=== PATIENT | female | born 1965 | race Two or more races ===

== ENCOUNTER 2017-11-26 13:26 | Outpatient (CLI) | payer OTHER ==
[~2017-11-26 13:26] MED LIST: ASA81 MG; CATAFLAM50 MG; GILTUSS TR TAB1 EACH PO; HYDROCHLOROTH12.5 M1; HYDROCHLOROTH12.5 M1 PO; LOPRESSOR25 MG; LOPRESSOR25 MG PO; PRILOSEC10 M1; PRILOSEC10 M1 PO; PROTONIX40 MG PO; TESSALON PERLE100 MG PO; TRENTAL 400 MG PO; ZITHROMAX500 MG PO
== END 2017-11-26 13:39 | disposition home or self-care (01) ==
LOC: RAD 13:26
DX: I10 Essential (primary) hypertension (principal); E78.2 Mixed hyperlipidemia; R42 Dizziness and giddiness; R73.01 Impaired fasting glucose; M54.5 Low back pain; M54.2 Cervicalgia

== ENCOUNTER → 2017-12-01 07:35 | Outpatient (CLI) | payer OTHER ==
[~2017-12-01 07:35] MED LIST changes: +CYCLOBENZAPRINE10 MG PO
== END | disposition home or self-care (01) ==
LOC: LAB 07:35
DX: I10 Essential (primary) hypertension (principal); E78.2 Mixed hyperlipidemia; R42 Dizziness and giddiness; R73.01 Impaired fasting glucose; M54.5 Low back pain; M54.2 Cervicalgia

== ENCOUNTER 2017-12-19 15:16 | Emergency (ER) | payer OTHER ==
[~2017-12-19] VITALS: Ht 165.1 cm; Wt 88.5 kg
== END 2017-12-19 19:15 | disposition home or self-care (01) ==
LOC: ER 15:16
DX: S00.83XA Contusion of other part of head, initial encounter (principal); S10.83XA Contusion of other specified part of neck, initial encounter; S30.1XXA Contusion of abdominal wall, initial encounter; W08.XXXA Fall from other furniture, initial encounter; Y93.89 Activity, other specified; Y92.098 Other place in other non-institutional residence as the place of occurrence of the external cause; Y99.8 Other external cause status

== ENCOUNTER 2018-06-29 07:38 | Outpatient (CLI) | payer OTHER | END 2018-06-29 07:43 | disposition home or self-care (01) | LOC: RAD 07:38 | DX: M25.551 Pain in right hip (principal) ==

== ENCOUNTER 2018-08-22 14:41 | Outpatient (CLI) | payer OTHER | END 2018-08-22 14:47 | disposition home or self-care (01) | LOC: LAB 14:41 | DX: J11.1 Influenza due to unidentified influenza virus with other respiratory manifestations (principal); J06.9 Acute upper respiratory infection, unspecified ==

== ENCOUNTER 2018-12-11 06:30 | Outpatient (CLI) | payer OTHER | END 2018-12-11 07:07 | disposition home or self-care (01) | LOC: LAB 06:30 | DX: R42 Dizziness and giddiness (principal); E78.49 Other hyperlipidemia; Z00.00 Encounter for general adult medical examination without abnormal findings; I10 Essential (primary) hypertension ==

== ENCOUNTER 2019-01-02 13:12 | Outpatient (CLI) | payer OTHER | END 2019-01-02 13:29 | disposition home or self-care (01) | LOC: MAMO-SONO 13:12 | DX: Z12.31 Encounter for screening mammogram for malignant neoplasm of breast (principal); N60.11 Diffuse cystic mastopathy of right breast ==

== ENCOUNTER → 2019-01-03 | Outpatient (CLI) | payer OTHER | END | disposition home or self-care (01) | LOC: NUCLEAR 13:00 | DX: M81.0 Age-related osteoporosis without current pathological fracture (principal) ==

== ENCOUNTER → 2019-08-07 | Outpatient (CLI) | payer OTHER | END | disposition home or self-care (01) | LOC: RAD 13:26 | DX: M54.5 Low back pain (principal); M25.551 Pain in right hip; M79.642 Pain in left hand; M25.532 Pain in left wrist ==

== ENCOUNTER 2020-01-06 11:38 | Outpatient (CLI) | payer OTHER | END 2020-01-06 11:44 | disposition home or self-care (01) | LOC: RAD 11:38 | PROVIDERS: ATTEND Internal Medicine Cardiovascular Disease | DX: M12.89 Other specific arthropathies, not elsewhere classified, multiple sites (principal); M46.47 Discitis, unspecified, lumbosacral region ==

== ENCOUNTER 2020-01-07 06:10 | Outpatient (CLI) | payer OTHER | END 2020-01-07 06:20 | disposition home or self-care (01) | LOC: LAB 06:10 | PROVIDERS: ATTEND Internal Medicine Cardiovascular Disease | DX: E03.8 Other specified hypothyroidism (principal); I10 Essential (primary) hypertension; E11.9 Type 2 diabetes mellitus without complications; E78.2 Mixed hyperlipidemia; M12.88 Other specific arthropathies, not elsewhere classified, other specified site ==

== ENCOUNTER 2020-01-07 07:11 | Outpatient (CLI) | payer OTHER | END 2020-01-07 07:15 | disposition home or self-care (01) | LOC: MRI 07:11 | PROVIDERS: ATTEND Internal Medicine Cardiovascular Disease | DX: M46.47 Discitis, unspecified, lumbosacral region (principal) | CPT/HCPCS: 72148 ==

== ENCOUNTER 2020-03-01 18:34 | Inpatient (IN) | payer OTHER ==
[~2020-03-01] VITALS: Ht 165.1 cm; Wt 92.3 kg
[~2020-03-01 18:34] MED LIST changes: +HYDROCHLOROTHIA25 MG PO
[2020-03-05] MEDS ORDERED: ACID REDUCER20 M1 PO (14:47)
[2020-03-05] MEDS ORDERED: PEPCID AC20 MG PO (14:47)
== END 2020-03-05 16:49 | disposition home or self-care (01) | DRG 392 ==
LOC: ER 18:34 → SEC-K 03-02 00:56 → SURH 03-02 00:56
PROVIDERS: ADMIT Neurological Surgery; ATTEND Neurological Surgery
PROC: BW40ZZZ Ultrasonography of Abdomen (ICD-10-PCS; 2020-03-02)
PROC: BW21YZZ Computerized Tomography (CT Scan) of Abdomen and Pelvis using Other Contrast (ICD-10-PCS; principal; 2020-03-03)
DX: R10.84 Generalized abdominal pain (principal); R65.10 Systemic inflammatory response syndrome (SIRS) of non-infectious origin without acute organ dysfunction; I10 Essential (primary) hypertension; Z20.828 Contact with and (suspected) exposure to other viral communicable diseases

== ENCOUNTER → 2020-06-24 | Outpatient (CLI) | payer OTHER ==
[~2020-06-24] MED LIST changes: +ACID REDUCER20 M1 PO; +PEPCID AC20 MG PO
== END | disposition home or self-care (01) ==
LOC: PPH VACUNA 14:27
DX: Z23 Encounter for immunization (principal)

== ENCOUNTER 2020-07-14 11:49 | Outpatient (CLI) | payer OTHER | END 2020-07-14 18:00 | disposition home or self-care (01) | LOC: PPH VACUNA 11:49 | DX: Z23 Encounter for immunization (principal) ==

== ENCOUNTER 2020-09-16 06:26 | Outpatient (CLI) | payer OTHER | END 2020-09-16 15:21 | disposition home or self-care (01) | LOC: LAB 06:26 | PROVIDERS: ATTEND Neurological Surgery | DX: M48.062 Spinal stenosis, lumbar region with neurogenic claudication (principal) ==

== ENCOUNTER → 2020-11-16 | Emergency (ER) | payer OTHER ==
[~2020-11-16] VITALS: Ht 165.1 cm; Wt 86.2 kg
[~2020-11-16] MED LIST changes: +BENADRYL25 MG PO; +MEDROL4 MG PO
== END | disposition home or self-care (01) ==
LOC: ER 23:05
DX: T78.3XXA Angioneurotic edema, initial encounter (principal)

== ENCOUNTER 2021-03-15 13:58 | Outpatient (CLI) | payer OTHER | END 2021-03-15 14:00 | disposition home or self-care (01) | LOC: RAD 13:58 | DX: M48.062 Spinal stenosis, lumbar region with neurogenic claudication (principal) ==

== ENCOUNTER 2021-04-11 08:00 | Outpatient (CLI) | payer OTHER | END 2021-04-11 08:30 | disposition home or self-care (01) | LOC: PPH VACUNA 08:00 | PROVIDERS: ATTEND Emergency Medicine Pediatric Emergency Medicine | DX: Z23 Encounter for immunization (principal) ==

== ENCOUNTER 2021-04-21 16:50 | Outpatient (CLI) | payer OTHER | END 2021-04-21 16:55 | disposition home or self-care (01) | LOC: PPH VACUNA 16:50 | PROVIDERS: ATTEND Emergency Medicine Pediatric Emergency Medicine | DX: Z23 Encounter for immunization (principal) ==

== ENCOUNTER 2021-05-24 07:15 | Emergency (ER) | payer OTHER ==
[~2021-05-24] VITALS: Ht 165.1 cm; Wt 92.1 kg
[2021-05-24] MEDS ORDERED: PROMETH-CODEIN 65 ML PO (12:13)
[2021-05-24] MEDS ORDERED: MEDROLPACK PO (12:13)
[2021-05-24] MEDS ORDERED: TESSALON PERLE100 M1 PO (12:13)
[2021-05-24] MEDS ORDERED: ZITHROMAX500 MG PO (12:13)
[2021-05-24] MEDS ORDERED: MUCINEX DM ER1 EAC1 PO (12:13)
[2021-05-24] MEDS ORDERED: IPRAT-ALBUT 0.5-3 ML IH (12:13)
== END 2021-05-24 12:30 ==
LOC: ER 07:15
DX: J06.9 Acute upper respiratory infection, unspecified (principal); Z03.818 Encounter for observation for suspected exposure to other biological agents ruled out; I10 Essential (primary) hypertension

== ENCOUNTER 2022-03-29 08:00 | Outpatient (CLI) | payer OTHER ==
[~2022-03-29 08:00] MED LIST changes: +IPRAT-ALBUT 0.5-3 ML IH; +MEDROLPACK PO; +MUCINEX DM ER1 EAC1 PO; +PROMETH-CODEIN 65 ML PO; +TESSALON PERLE100 M1 PO
== END 2022-03-29 08:05 | disposition home or self-care (01) ==
LOC: PPH VACUNA 08:00
PROVIDERS: ATTEND Emergency Medicine Pediatric Emergency Medicine
DX: Z23 Encounter for immunization (principal)

== ENCOUNTER 2022-04-28 14:16 | Outpatient (CLI) | payer OTHER | END 2022-04-28 14:22 | disposition home or self-care (01) | LOC: MRI 14:16 | PROVIDERS: ATTEND Neurological Surgery | DX: M48.062 Spinal stenosis, lumbar region with neurogenic claudication (principal); M48.02 Spinal stenosis, cervical region | CPT/HCPCS: 72141 ==